=== PATIENT | female | born 1960 | race Caucasian/White ===

== ENCOUNTER 2019-01-22 16:04 | Emergency (ER) | payer BC ==
[2019-01-22 16:31] LABS: SQUAMOUS EPITHIAL 1 /hpf (0-5); URINE BILIRUBIN NEGATIVE (NEGATIVE); URINE BLOOD 1+ (NEGATIVE); URINE CLARITY Hazy (Clear); URINE COLOR Amber (YELLOW); URINE GLUCOSE (UA) NORMAL (Normal); URINE LEUKOCYTE ESTERASE 3+ Leu/uL (Negative); URINE PROTEIN 2+ mg/dL (NEGATIVE); URINE UROBILINOGEN NORMAL mg/dL (0.2-1.0); WBC CLUMPS FEW /hpf
[2019-01-22] MEDS ORDERED: cefTRIAXone IV 1 gm in Dextros 50 ML IVPB STA (16:35)
--- NOTE | 2019-01-22 17:17 | C.PDOC ---
History Of Present Illness 58-year-old female presents to the ED for evaluation of weakness and lethargy which began last night. Patient also reports abdominal pain. Today, patient states she began feeling chills and reports urinary frequency and urgency. Patient states her abdominal pain has now resolved. She denies fever, nausea and vomiting. Time Seen by Provider: 01/22/19 16:15 Chief Complaint (Nursing): Female Genitourinary History Per: Patient History/Exam Limitations: no limitations Onset/Duration Of Symptoms: Days Current Symptoms Are (Timing): Still Present Additional History Per: Patient Past Medical History Reviewed: Historical Data, Nursing Documentation, Vital Signs Vital Signs: Last Vital Signs Temp 99.5 F 01/22/19 16:11 Pulse 95 H 01/22/19 16:11 Resp 18 01/22/19 16:11 BP 143/78 01/22/19 16:11 Pulse Ox 97 01/22/19 16:11 Primary Care Provider: Clement Charlton - Medical History PMH: No Chronic Diseases Surgical History: Cholecystectomy Family History: States: Unknown Family Hx - Social History Hx Alcohol Use: No Hx Substance Use: No Review Of Systems Constitutional: Positive for: Chills, Weakness. Negative for: Fever Cardiovascular: Negative for: Chest Pain Respiratory: Negative for: Cough Gastrointestinal: Positive for: Abdominal Pain. Negative for: Nausea, Vomiting, Diarrhea Genitourinary: Positive for: Frequency, Other (urinary urgency). Negative for: Hematuria Neurological: Negative for: Weakness, Numbness Physical Exam - Physical Exam Appears: Non-toxic, No Acute Distress Skin: Normal Color, Warm, Dry Head: Atraumatic, Normacephalic Eye(s): bilateral: Normal Inspection Ear(s): Bilateral: Normal Nose: Normal, No Discharge Oral Mucosa: Moist Throat: Normal, No Erythema, No Exudate Neck: Supple Chest: Symmetrical, No Deformity, No Tenderness Cardiovascular: Rhythm Regular, No Murmur Respiratory: Normal Breath Sounds, No Rales, No Rhonchi, No Wheezing Gastrointestinal/Abdominal: Soft, No Tenderness, No Guarding, No Rebound Back: No CVA Tenderness Extremity: Normal ROM, Capillary Refill <2 Sec (less than 2 seconds ) Neurological/Psych: Oriented x3, Normal Speech, Normal Cognition ED Course And Treatment - Laboratory Results Lab Results: Urine Color Edie (YELLOW) 01/22/19 16:22 Urine Clarity Hazy (Clear) 01/22/19 16:22 Urine pH 6.0 (5.0-8.0) 01/22/19 16:22 Ur Specific [place] 1.017 (1.003-1.030) 01/22/19 16:22 Urine Protein 2+ mg/dL (NEGATIVE) H 01/22/19 16:22 Urine Glucose (UA) Normal mg/dL (Normal) 01/22/19 16:22 Urine Ketones Negative mg/dL (NEGATIVE) 01/22/19 16:22 Urine Blood 1+ (NEGATIVE) H 01/22/19 16:22 Urine Nitrate Negative (NEGATIVE) 01/22/19 16:22 Urine Bilirubin Negative (NEGATIVE) 01/22/19 16:22 Urine Urobilinogen Normal mg/dL (0.2-1.0) 01/22/19 16:22 Ur Leukocyte Esterase 3+ Priscila/uL (Negative) H 01/22/19 16:22 Urine WBC (Auto) 909 /hpf (0-5) H 01/22/19 16:22 Urine RBC (Auto) 16 /hpf (0-3) H 01/22/19 16:22 Urine WBC Clumps (Auto) Few /hpf (NONE) H 01/22/19 16:22 Ur Squamous Epith Cells 1 /hpf (0-5) 01/22/19 16:22 O2 Sat by Pulse Oximetry: 97 (on RA ) Pulse Ox Interpretation: Normal Medical Decision Making Medical Decision Making: Urinalysis ordered and reviewed, shows urinary tract infection. Rocephin IVPB administered. Disposition Counseled Patient/Family Regarding: Studies Performed, Diagnosis, Need For Followup, Rx Given - Disposition Disposition: HOME/ ROUTINE Disposition Time: 17:15 Condition: IMPROVED Additional Instructions: Drink increased fluids. Tylenol or Motrin for pain or fever. Take Macrobid until completed. Follow up with your doctor in 1-2 days. Return to ER for fever,back pain. vomiting or any other concerns. Prescriptions: Nitrofurantoin Macrocrystals [Macrobid] 100 mg PO BID #14 cap Instructions: Urinary Tract Infection, Adult (DC) Forms: [facility] (Romansh), General Discharge Instructions - Clinical Impression Clinical Impression: UTI (urinary tract infection) - PA / [employer] / Resident Statement MD/DO has reviewed & agrees with the documentation as recorded. - Scribe Statement The provider has reviewed the documentation as recorded by the Scribe (Mikki Hamilton) All medical record entries made by the Scribe were at my direction and personally dictated by me. I have reviewed the chart and agree that the record accurately reflects my personal performance of the history, physical exam, medical decision making, and the department course for this patient. I have also personally directed, reviewed, and agree with the discharge instructions and disposition.
[2019-01-22 17:36] VITALS: BP 113/70; PULSE 90; RESP 21; TEMP 99.1
[2019-01-22 18:52] VITALS: O2SAT 97
== END 2019-01-22 17:36 | disposition home or self-care (01) ==
LOC: C.ER 16:04
DX: N39.0 Urinary tract infection, site not specified (principal)
CPT/HCPCS: 81001; 87086; 96365; 99284; J0696